=== PATIENT | male | born 1965 | race Caucasian/White ===

== ENCOUNTER → 2021-09-04 | Outpatient (CLI) | payer SELFPAY, OTHER ==
--- NOTE | 2021-09-04 13:00 | CT_ITS ---
INDICATION: FAM HX OF HYPER LIPIDEMIA EXAMINATION: CT CHEST WITHOUT CONTRAST - CT Chest W/O Contrast Injection- Limited (overread) TECHNIQUE: Helically acquired images were obtained of the chest. A radiation dose optimization technique was used for this scan. IV Contrast dosage and agent: None. COMPARISON: None. FINDINGS: LUNGS, PLEURA AND LARGE AIRWAYS: Incompletely imaged. No masses, consolidation, or edema. No pleural effusion or thickening. No pneumothorax. HEART AND PERICARDIUM: Heart size is normal. No pericardial effusion. CORONARY ARTERIES: Coronary artery calcification is seen. VESSELS: Incompletely imaged. Thoracic aorta is not dilated. MEDIASTINUM AND SABRINA: Incompletely imaged. No mediastinal or hilar adenopathy. Esophagus is unremarkable. No hiatal hernia. UPPER ABDOMEN: No acute pathology. BONES: No suspicious lytic or blastic abnormality. CT/Limited Chest CT w/CCTA IMPRESSION: No incidental findings requiring additional follow-up/workup. Electronically Signed: Steven Ramires MD ([place]) at 10:06 EDT ,
[2021-09-04 13:09] VITALS: BP 144/73; PULSE 64; RESP 18; O2SAT 98; BMI 31.1
--- NOTE | 2021-09-05 08:35 | CA.SCORE ---
Calcium Scoring Coronary Calcium Scoring: High-resolution Computed Tomographic imaging of the chest was performed on [09/04/2021], with particular attention paid to the coronary arteries. Images from the examination were analyzed for the presence and extent of coronary artery calcification , using coronary calcium quantification software. The patient tolerated the procedure well and there were no complications. The results of the coronary calcification analysis are provided below. Left main score was 0 Left anterior descending artery score 56.6 Left circumflex artery score 6.3 Right coronary artery score 4.9. Total Agatston score 67.9. This places the patient between the 50th and 75th percentile ranking. The above is suggestive of mild or minimal coronary atherosclerosis. Calcium Scoring Interpretation: 0 No identifiable atherosclerotic plaque. Very low cardiovascular disease risk. <5% chance of presence coronary artery disease A Negative Examination 1-10 Minimal Plaque burden. Significant coronary artery disease very unlikely. 11-100 Mild plaque burden. Likely mild or minimal coronary atherosclerosis. 101-400 Moderate plaque burden Moderate non-obstructive coronary artery disease highly likely. Over 400 Extensive plaque burden. High likelihood of at least one significant coronary stenosis (>50% diameter)
== END | disposition home or self-care (01) ==
LOC: CT 12:58
PROVIDERS: Referring Provider Nurse Practitioner Family; Visit Provider Nurse Practitioner Family
DX: E78.5 Hyperlipidemia, unspecified (principal); Z82.49 Family history of ischemic heart disease and other diseases of the circulatory system
CPT/HCPCS: 75571; 76380